=== PATIENT | female | born 1955 | race Caucasian/White ===

== ENCOUNTER 2017-02-18 15:10 | Emergency (ER) | payer OTHER ==
[~2017-02-18] VITALS: Ht 160 cm; Wt 54.5 kg
[~2017-02-18 15:10] MED LIST: CEPHALEXIN500 MG PO; NORCO1 TA1 PO; ULTRAM50 M1 PO; ULTRAM50 MG PO; VALIUM5 MG PO
[2017-02-18] MEDS ORDERED: KEFLEX500 MG PO (15:33)
[2017-02-18] MEDS ORDERED: CORTISPORIN OTI10 ML AU (16:09)
[2017-02-18] MEDS ORDERED: AMOX/K CLAV875 M1 PO (16:09)
[2017-02-18] MEDS ORDERED: ULTRAM50 M1 PO (16:09)
[2017-02-18] MEDS ORDERED: FLONASE AL50 MCG/ACT (16:09)
[2017-02-18 16:10] VITALS: BP 127/93
[2017-02-18] MEDS ORDERED: LORTAB 10-325 M1 TAB PO (16:18)
== END 2017-02-18 16:22 | disposition home or self-care (01) | DRG 153 ==
LOC: ED 15:10
DX: H66.92 Otitis media, unspecified, left ear (principal); F41.9 Anxiety disorder, unspecified; J01.90 Acute sinusitis, unspecified; J02.9 Acute pharyngitis, unspecified; G89.29 Other chronic pain; M54.9 Dorsalgia, unspecified; F17.210 Nicotine dependence, cigarettes, uncomplicated